=== PATIENT | female | born 1970 | race Caucasian/White ===

== ENCOUNTER 2024-04-09 13:27 | Outpatient (CLI) | payer OTHER, MEDICARE | END 2024-04-09 13:28 | disposition critical access hospital (66) | LOC: EMS 13:27 | DX: S40.812A Abrasion of left upper arm, initial encounter (principal); S40.811A Abrasion of right upper arm, initial encounter; V49.50XA Passenger injured in collision with unspecified motor vehicles in traffic accident, initial encounter; Y92.413 State road as the place of occurrence of the external cause | CPT/HCPCS: A0425; A0429 ==

== ENCOUNTER 2024-04-09 13:49 | Emergency (ER) | payer MEDICARE, OTHER ==
[2024-04-09 14:02] VITALS: BP 143/115; O2SAT 99
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
== END 2024-04-09 14:54 | disposition home or self-care (01) ==
LOC: EDUNIT# → ED 13:49
DX: S40.812A Abrasion of left upper arm, initial encounter (principal); S40.811A Abrasion of right upper arm, initial encounter; V53.6XXA Passenger in pick-up truck or van injured in collision with car, pick-up truck or van in traffic accident, initial encounter; Y92.410 Unspecified street and highway as the place of occurrence of the external cause
CPT/HCPCS: 99283